=== PATIENT | female | born 1990 | race Caucasian/White ===

== ENCOUNTER 2019-09-15 10:39 | Observation (INO) | payer OTHER ==
[~2019-09-15] VITALS: Ht 170.2 cm; Wt 80.7 kg
[2019-09-15 12:35] VITALS: BP 107/64
== END 2019-09-15 13:30 | disposition home or self-care (01) ==
LOC: MLD 10:39
PROVIDERS: ADMIT Obstetrics & Gynecology; ATTEND Obstetrics & Gynecology
DX: O41.03X0 Oligohydramnios, third trimester, not applicable or unspecified (principal); O24.410 Gestational diabetes mellitus in pregnancy, diet controlled; Z3A.32 32 weeks gestation of pregnancy
CPT/HCPCS: 76805; G0378; Q0092; 81000